=== PATIENT | male | born 1950 | race Caucasian/White ===

== ENCOUNTER 2019-05-28 05:20 | Day surgery (SDC) | payer OTHER ==
[~2019-05-28] VITALS: Ht 170.2 cm; Wt 98.0 kg
[2019-05-28] MEDS ORDERED: CEFAZOLIN SOD 1 GM in D5W 50 ML IV ONE (07:00)
[2019-05-28] MEDS ORDERED: NS IRRIG SOLN 1000 ML IR ONE (07:31)
[2019-05-28] MEDS ORDERED: fentaNYL CITRATE 250 MCG/5 ML AMP IV ONE (07:31)
[2019-05-28] MEDS ORDERED: PHENYLEPHRINE HCL 10 MG/ML VIAL (NEOSYNEPHRINE) IV ONE (07:31)
[2019-05-28] MEDS ORDERED: ISOFLURANE 15 MIN GAS INH ONE (07:31)
[2019-05-28] MEDS ORDERED: IOPAMIDOL 50 ML VIAL IV ONE (07:31)
[2019-05-28] MEDS ORDERED: LR 1,000 ML IV.SOLN IV ONE (07:31)
[2019-05-28] MEDS ORDERED: MIDAZOLAM HCL 5 MG/5 ML VIAL IVP ONE (07:31)
[2019-05-28] MEDS ORDERED: ONDANSETRON HCL 4 MG/2 ML VIAL IVP ONE (07:31)
[2019-05-28] MEDS ORDERED: ePHEDrine sulfate 50 MG/ML VIAL IVP ONE (07:31)
[2019-05-28] MEDS ORDERED: IOHEXOL 50 ML IV ONE (07:40)
[2019-05-28] MEDS ORDERED: D5/0.45 NS 1,000 ML IV SCH (08:54)
[2019-05-28] MEDS ORDERED: HYDROmorphone 1 MG INJ. 1 MG/ML AMPUL IVP PRN ×3 (09:00→09:15)
[2019-05-28] MEDS ORDERED: HYDROcodone/ACETAMIN 5-325 MG TAB (NORCO/ VICODIN) PO PRN ×2 (09:00)
[2019-05-28] MEDS ORDERED: LR 1,000 ML IV ONE (09:04)
[2019-05-28] MEDS ORDERED: KETOROLAC TROMETHAMINE 30 MG VIAL IM PRN ×2 (09:15)
[2019-05-28] MEDS ORDERED: ONDANSETRON HCL 4 MG/2 ML VIAL IVP PRN ×2 (09:15)
[2019-05-28 10:06] VITALS: BP_SYST 125
[2019-05-28] MEDS ORDERED: HYDROcodone/ACETAMIN 5-325 MG TAB (NORCO/ VICODIN) ONE (10:10)
== END 2019-05-28 11:35 | disposition home or self-care (01) ==
LOC: SDS 05:20 → SMU 05:20 → SDS 11:35
PROVIDERS: ATTEND Colon & Rectal Surgery
DX: K80.10 Calculus of gallbladder with chronic cholecystitis without obstruction (principal); I10 Essential (primary) hypertension; M19.012 Primary osteoarthritis, left shoulder; M19.011 Primary osteoarthritis, right shoulder; I25.10 Atherosclerotic heart disease of native coronary artery without angina pectoris; M10.9 Gout, unspecified; E78.5 Hyperlipidemia, unspecified; E66.9 Obesity, unspecified; I25.2 Old myocardial infarction; G47.33 Obstructive sleep apnea (adult) (pediatric); E11.51 Type 2 diabetes mellitus with diabetic peripheral angiopathy without gangrene; Z95.1 Presence of aortocoronary bypass graft; E03.9 Hypothyroidism, unspecified; Z79.82 Long term (current) use of aspirin; Z79.84 Long term (current) use of oral hypoglycemic drugs; Z79.899 Other long term (current) drug therapy
CPT/HCPCS: 36415; 47562; 82947; 82948; 82962; C1727; C1758; J0690; J2250; J2370; J2405; J3010; J7060; J7120; Q9967 ×2